=== PATIENT | male | born 1960 | race Caucasian/White ===

== ENCOUNTER → 2016-10-09 07:04 | Outpatient (CLI) | payer MEDICARE, BC ==
[2014-10-01 19:59] VITALS: BMI 35.7
[~2016-10-09 07:04] MED LIST: SINGULAIR10 MG PO; XOPENEX HFA15 GM INH
== END | disposition home or self-care (01) ==
LOC: D.CT 07:04
DX: R10.31 Right lower quadrant pain (principal)